=== PATIENT | female | born 1945 | race Caucasian/White ===

== ENCOUNTER 2020-09-03 07:24 | Emergency (ER) | payer MEDICARE, OTHER ==
[2020-09-03 07:44] VITALS: TEMP 98
[2020-09-03] MEDS ORDERED: ONDANSETRON 4 MG/2 ML VIAL IVP STA (07:57)
[2020-09-03] MEDS ORDERED: MORPHINE SULFATE 4 MG/ML SYRINGE IV STA (07:57)
--- NOTE | 2020-09-03 07:58 | ED ---
General Adult HPI - General Chief complaint: Abdominal Pain Stated complaint: kidney stones Time Seen by Provider: 09/03/20 07:45 Source: patient Mode of arrival: ambulatory Limitations: no limitations - History of Present Illness Initial comments: Dictation was produced using [employer] dictation software. please excuse any grammatical, word or spelling errors. Chief Complaint: 74-year-old male presents with left sided flank pain History of Present Illness: 74-year-old female she has history of kidney stones. She states she's had 3 kidney stones in the past. States she's got some left- sided flank pain that started last night. States that her symptoms were severe at its onset. She ranked her pain at 10 out of 10 with associated nausea. She did not notice any obvious changes in her urine. Patient states the pain is to her left flank area and initially there was some radiation to her left groin. States her symptoms feel similar to kidney so she's had in the past. Denies any fever, chills or night sweats. The ROS documented in this emergency department record has been reviewed and confirmed by me. Those systems with pertinent positive or negative responses have been documented in the HPI. All other systems are other negative and/or noncontributory. PHYSICAL EXAM: General Impression: Alert and oriented x3, not in acute distress HEENT: Normocephalic atraumatic, extra-ocular movements intact, pupils equal and reactive to light bilaterally, mucous membranes moist. Cardiovascular: Heart regular rate and rhythm Chest: Able to complete full sentences, no retractions, no tachypnea Abdomen: abdomen soft, non-tender, non-distended, no organomegaly Musculoskeletal: Pulses present and equal in all extremities, no peripheral edema Motor: no focal deficits noted Neurological: CN II-XII grossly intact, no focal motor or sensory deficits noted Skin: Intact with no visualized rashes Psych: Normal affect and mood ED course: 74-year-old well-appearing female with history of kidney stones presents with left-sided flank pain that she reports is comparable to kidney stones she is being diagnosed within the past. Vital signs upon arrival are within acceptable limits. Laboratory evaluation obtained. CBC and [place]. Metabolic panel is negative. Urinalysis shows 84 red blood cells. Ultrasound of the kidneys and bladder shows no hydronephrosis. Patient reevaluated bedside at 10:40 AM found to be stable medical condition. She states that her symptoms are significantly improved with IV analgesia. Patient likely passed a stone. Patient is well- appearing at bedside she will be discharged. - Related Data Previous Rx's Medication Instructions Recorded HYDROcodone/APAP 5-325MG [[place] 1 tab PO Q6HR PRN 3 Days #12 tab 09/03/20 5-325] Allergies Allergy/AdvReac Type Severity Reaction Status Date / Time grass pollen Allergy Itching Verified 09/03/20 07:39 Review of Systems ROS Statement: Those systems with pertinent positive or pertinent negative responses have been documented in the HPI. ROS Other: All systems not noted in ROS Statement are negative. Past Medical History Past Medical History: Hypertension History of Any Multi-Drug Resistant Organisms: None Reported Past Surgical History: Joint Replacement Past Psychological History: No Psychological Hx Reported Smoking Status: Never smoker Past Alcohol Use History: Occasional Past Drug Use History: None Reported General Exam Limitations: no limitations Course Vital Signs 09/03/20 09/03/20 09/03/20 07:40 09:00 10:00 Temperature 98.0 F Pulse Rate 57 L 63 Respiratory 16 18 18 Rate Blood Pressure 158/78 136/74 O2 Sat by Pulse 99 95 Oximetry Medical Decision Making - Lab Data Result diagrams: 09/03/20 08:23 09/03/20 08:23 Lab Results 09/03/20 09/03/20 09/03/20 Range/Units 08:23 08:23 08:23 WBC 9.8 (3.8-10.6) k/uL RBC 4.74 (3.80-5.40) m/uL Hgb 14.2 (11.4-16.0) gm/dL Hct 44.0 (34.0-46.0) % MCV 92.9 (80.0-100.0) fL MCH 30.1 (25.0-35.0) pg MCHC 32.4 (31.0-37.0) g/dL RDW 12.8 (11.5-15.5) % Plt Count 259 (150-450) k/uL MPV 7.9 Neutrophils % 82 % Lymphocytes % 11 % Monocytes % 3 % Eosinophils % 1 % Basophils % 1 % Neutrophils # 8.1 H (1.3-7.7) k/uL Lymphocytes # 1.1 (1.0-4.8) k/uL Monocytes # 0.3 (0-1.0) k/uL Eosinophils # 0.1 (0-0.7) k/uL Basophils # 0.1 (0-0.2) k/uL Sodium 139 (137-145) mmol/L Potassium 4.4 (3.5-5.1) mmol/L Chloride 108 H (98-107) mmol/L Carbon Dioxide 22 (22-30) mmol/L Anion Gap 9 mmol/L BUN 18 H (7-17) mg/dL Creatinine 0.86 (0.52-1.04) mg/dL Est GFR (CKD-EPI)AfAm 78 (>60 ml/min/1.73 sqM) Est GFR (CKD-EPI)NonAf 68 (>60 ml/min/1.73 sqM) Glucose 194 H (74-99) mg/dL Calcium 10.0 (8.4-10.2) mg/dL Total Bilirubin 1.1 (0.2-1.3) mg/dL AST 43 H (14-36) U/L ALT 40 H (4-34) U/L Alkaline Phosphatase 87 (38-126) U/L Total Protein 7.2 (6.3-8.2) g/dL Albumin 4.4 (3.5-5.0) g/dL Lipase 201 (23-300) U/L Urine Color Yellow Urine Appearance Clear (Clear) Urine pH 5.5 (5.0-8.0) Ur Specific [place] 1.015 (1.001-1.035) Urine Protein Negative (Negative) Urine Glucose (UA) Negative (Negative) Urine Ketones Negative (Negative) Urine Blood Large H (Negative) Urine Nitrite Negative (Negative) Urine Bilirubin Negative (Negative) Urine Urobilinogen <2.0 (<2.0) mg/dL Ur Leukocyte Esterase Negative (Negative) Urine RBC 84 H (0-5) /hpf Urine WBC 2 (0-5) /hpf Ur Squamous Epith Cells 1 (0-4) /hpf Urine Mucus Occasional H (None) /hpf Disposition Clinical Impression: Flank pain Disposition: HOME SELF-CARE Condition: Good Instructions (If sedation given, give patient instructions): Kidney Stones (ED) Prescriptions: HYDROcodone/APAP 5-325MG [[place] 5-325] 1 tab PO Q6HR PRN 3 Days #12 tab PRN Reason: Severe Pain Is patient prescribed a controlled substance at d/c from ED?: Yes If prescribed controlled substance>3 days was MAPS reviewed?: Prescribed <3 Days Referrals: Nonstaff,Physician [Primary Care Provider] - 1-2 days
[2020-09-03 08:30] LABS: Basophils # (A) 0.1 k/uL (0-0.2); Basophils % (A) 1 %; Eosinophils # (A) 0.1 k/uL (0-0.7); Eosinophils % (A) 1 %; HGB 14.2 gm/dL (11.4-16.0); Lymphocytes # (A) 1.1 k/uL (1.0-4.8); Lymphocytes % (A) 11 %; MCH 30.1 pg (25.0-35.0); MCHC 32.4 g/dL (31.0-37.0); MCV 92.9 fL (80.0-100.0); Mean Platelet Volume 7.9; Monocytes # (A) 0.3 k/uL (0-1.0); Monocytes % (A) 3 %; Neutrophils # (A) 8.1 k/uL (1.3-7.7); Neutrophils % (A) 82 %; Platelet Count 259 k/uL (150-450); RBC 4.74 m/uL (3.80-5.40); RDW 12.8 % (11.5-15.5); WBC 9.8 k/uL (3.8-10.6)
[2020-09-03 08:48] LABS: Albumin 4.4 g/dL (3.5-5.0); Potassium 4.4 mmol/L (3.5-5.1); Total Bilirubin 1.1 mg/dL (0.2-1.3); Total Protein 7.2 g/dL (6.3-8.2)
[2020-09-03 09:27] LABS: Appearance,Urine Clear (Clear); Bilirubin,Urine Negative (Negative); Blood,Urine Large (Negative); Color,Urine Yellow; Glucose,Urine (UA) Negative (Negative); Ketones,Urine Negative (Negative); Leukocyte Esterase,Urine Negative (Negative); Mucus,Urine Occasional /hpf; Nitrite,Urine Negative (Negative); PH, Urine 5.5 (5.0-8.0); Protein,Urine Negative (Negative); RBC,Urine 84 /hpf (0-5); Specific Gravity,Urine 1.015 (1.001-1.035); Squamous Epithelial Cell,Urine 1 /hpf (0-4); Urobilinogen,Urine <2.0 mg/dL (<2.0); WBC,Urine 2 /hpf (0-5)
[2020-09-03] MEDS ORDERED: KETOROLAC 15 MG/ML 1 ML VIAL IVP STA (09:36)
--- NOTE | 2020-09-03 10:03 | US ---
EXAMINATION TYPE: US kidneys/renal and bladder DATE OF EXAM: 09/03/2020 COMPARISON: NONE CLINICAL HISTORY: flank pain. Pain hx of stones. EXAM MEASUREMENTS: Right Kidney: 9.9 x 4.5 x 4.5 cm Left Kidney: 10.7 x 4.2 x 4.1 cm Right Kidney: Cystic area upper pole 2.5 x 1.8 x 2.8 cm lower pole 2.8 x 3.2 x 2.9 cm. Left Kidney: Cystic area lower pole 1.5 x 1.4 x 1.4 cm Bladder: wnl Bilateral Jets seen: Yes There is no evidence for hydronephrosis at this point in time. The urinary bladder is anechoic. [place] ateral ureteral jets are seen. IMPRESSION: Simple renal cystic changes.
[2020-09-03 10:27] VITALS: RESP 18
[2020-09-03 11:03] VITALS: BP 115/76; PULSE 62
== END 2020-09-03 11:00 | disposition home or self-care (01) ==
LOC: EC 07:24
DX: R10.9 Unspecified abdominal pain (principal); I10 Essential (primary) hypertension; Z87.442 Personal history of urinary calculi
CPT/HCPCS: 99284; 96374; 96375; 36415; 80053; 83690; 85025; 81001; 76770; J2270; J2405